=== PATIENT | female | born 1955 | race Caucasian/White ===

== ENCOUNTER 2023-10-22 13:27 | Outpatient (CLI) | payer OTHER, SELFPAY | END 2023-10-22 13:28 | disposition home or self-care (01) | LOC: ANHLAB 13:36 | PROVIDERS: Visit Provider Urology | DX: N30.10 Interstitial cystitis (chronic) without hematuria (principal) | CPT/HCPCS: 87086 ==

== ENCOUNTER 2023-11-07 03:24 | Day surgery (SDC) | payer OTHER, SELFPAY ==
[2023-10-31 12:12] VITALS: BMI 45.3
--- NOTE | 2023-10-31 12:26 | PC.NURSE ---
Report to the Outpatient Waiting Room, entrance under the green pavilion located off [facility], at time _0915_ on date _[id number]_. Planned Procedure Time: _1115_.? Time changes happen often and if your time is changed the preop area will call you the afternoon before. - You and your visitor will be asked to self-screen and do not enter if you have any COVID symptoms. Please call surgeon if you need to reschedule. - A mask is optional within the hospital at this time. Patients may have clear liquids (water, carbonated beverages, clear teas, apple juice) until 3 hours prior to surgery with a maximum of 20 ounces. - No food from midnight until time of surgery and no smoking Take only the following medications with a SIP of water on the morning of surgery: __Levothyroxine, Metoprolol, Imdur and Ranolazine____ DO NOT STOP ANY OF YOUR OTHER PRESCRIPTION MEDICATIONS PRIOR TO SURGERY EXCEPT THE FOLLOWING Medications to discontinue per physician ____All vitamins and supplements___ Date to take last ctyp____[id number] Please no make-up, nail sinhala, hairspray, perfume, deodorant, or body powder the day of surgery.? No jewelry (including any body piercings) or valuables the day of surgery, leave them at home.? Please take a shower or bath the night before, or the morning of, surgery with an antibacterial soap.? Wear comfortable, loose fitting clothing.? - Jewelry must be removed prior to entering the operating room.? Rings and piercings that are not removed may be cut off. - The hospital will not accept responsibility for valuables.? - Please leave all valuables, including medications, at home the day of surgery. If you are going home after surgery, a licensed tank wagon driver must drive you home.? - NO public transportation without another adult if you receive anesthesia. - We recommend that an adult stay with you for 24 hours following discharge. - We also recommend that you do not drive, make important decision, drink alcoholic beverages, or take any drugs that were not prescribed by your health care provider for at least 24 hours after your discharge time. Follow any additional instructions given to you from your surgeon. Telephone instructions given to ___Renee___and asked if any additional questions and then verbalized understanding. Patient advised to call surgeon office or pre surgery nurse liaison [phone] if any additional questions.
--- NOTE | 2023-11-02 17:18 | PM.IMHP ---
H&P: HPI History of Present Illness Date/Time: 11/02/23 17:18 Chief Complaint: bladder pain Narrative: recurrence of Hunner's ulcer Review of Systems Review of Systems: All systems reviewed & are unremarkable except as noted in HPI and below PMFSH Social History Social History Smoking status: Never smoker Alcohol intake: current Drinks per week: 7 Living arrangements: with family Spiritual care concerns: No Meds Home Medications and Allergies Home Medications Medication Instructions Recorded Confirmed Type adalimumab 40 mg/0.8 mL 40 mg subcut ONCE 10/31/23 10/31/23 History subcutaneous syringe kit (Humira) atorvastatin 40 mg tablet 40 mg PO HS 10/31/23 10/31/23 History cholecalciferol (vitamin D3) 125 125 mcg PO Q48H 10/31/23 10/31/23 History mcg (5,000 unit) tablet (Vitamin D3) cyclosporine 0.05 % eye drops in a 2 drp EACH EYE DAILY 10/31/23 10/31/23 History dropperette (Restasis) estradiol 0.05 mg/24 hr semiweekly 0.05 mg topical ONCE 10/31/23 10/31/23 History transdermal patch (Suzi) folic acid 1 mg tablet 1 mg PO DAILY 10/31/23 10/31/23 History isosorbide mononitrate 30 mg 90 mg PO DAILY 10/31/23 10/31/23 History tablet,extended release 24 hr levothyroxine 125 mcg tablet 125 mcg PO DAILY 10/31/23 10/31/23 History magnesium oxide 400 mg PO HS 10/31/23 10/31/23 History metformin 500 mg tablet 500 mg PO BID 10/31/23 10/31/23 History methotrexate sodium 2.5 mg tablet 15 mg PO WEEKLY 10/31/23 10/31/23 History metoprolol succinate 200 mg 200 mg PO BID 10/31/23 10/31/23 History tablet,extended release 24 hr naproxen 500 mg tablet 500 mg PO BID 10/31/23 10/31/23 History omega 8-ume-xxf-fish oil 1,000 mg 1 cap PO BID 10/31/23 10/31/23 History (120 mg-180 mg) capsule (Fish Oil) omeprazole 20 mg capsule,delayed 20 mg PO BID 10/31/23 10/31/23 History release ranolazine 500 mg tablet,extended 500 mg PO BID 10/31/23 10/31/23 History release,12 hr sertraline 50 mg tablet 50 mg PO HS 10/31/23 10/31/23 History tramadol 50 mg tablet 50 mg PO BID 10/31/23 10/31/23 History vit A 7,160 unit-vit C 113 mg-vit 1 tablet PO HS 10/31/23 10/31/23 History E 100 [id number]-[id number] tablet vitamin B complex 1 tablet PO DAILY 10/31/23 10/31/23 History Allergies Allergy/AdvReac Type Severity Reaction Status Date / Time adhesive tape Allergy Intermediate Rash Verified 10/31/23 11:55 Penicillins Allergy Intermediate Rash Verified 10/31/23 11:55 Sulfa (Sulfonamide Allergy Intermediate Rash Verified 10/31/23 11:55 Antibiotics) Exam Narrative: no acute distress normal breathing alert oriented x3 Assessment and Plan Assessment and plan (1) 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
--- NOTE | 2023-11-07 04:38 | WPDHPUPDATE1 ---
History and Physical Update Update Date/Time: 11/07/23 04:38 History and Physical has been reviewed, including an updated exam of the patient. There are NO changes in the patient's condition. Risks, benefits, and alternatives have been discussed and questions answered. Patient agrees to proceed with procedure.
[2023-11-07 09:30] VITALS: BP 149/64; PULSE 63; RESP 18; TEMP 36.2; O2SAT 90; BMI 44.9
[2023-11-07] MEDS: LACTATED RINGERS 1,000 ML 30 ML IV CONT (09:30)
--- NOTE | 2023-11-07 11:55 | WPDANESEPPF ---
Anes - Initial Pre Proc Eval Procedure: Operation Date: 11/07/23 11:15 Proposed Procedures p Cystoscopy, Bladder Biopsy with Steroid Injection - Fausto Holland MD Date/Time: 11/07/23 11:55 Surgeon: Fausto Holland MD Pre Op Diagnosis: hunners ulcer Patient Data Age: 68 Gender: F Height: 1.55 m Weight: 109 kg Allergies Allergy/AdvReac Type Severity Reaction Status Date / Time adhesive tape Allergy Intermediate Rash Verified 10/31/23 11:55 Penicillins Allergy Intermediate Rash Verified 10/31/23 11:55 Sulfa (Sulfonamide Allergy Intermediate Rash Verified 10/31/23 11:55 Antibiotics) Home Medications Medication Instructions Recorded Confirmed Type adalimumab 40 mg/0.8 mL 40 mg subcut ONCE 10/31/23 10/31/23 History subcutaneous syringe kit (Humira) atorvastatin 40 mg tablet 40 mg PO HS 10/31/23 10/31/23 History cholecalciferol (vitamin D3) 125 125 mcg PO Q48H 10/31/23 10/31/23 History mcg (5,000 unit) tablet (Vitamin D3) cyclosporine 0.05 % eye drops in a 2 drp EACH EYE DAILY 10/31/23 10/31/23 History dropperette (Restasis) estradiol 0.05 mg/24 hr semiweekly 0.05 mg topical ONCE 10/31/23 10/31/23 History transdermal patch (Suzi) folic acid 1 mg tablet 1 mg PO DAILY 10/31/23 10/31/23 History isosorbide mononitrate 30 mg 90 mg PO DAILY 10/31/23 10/31/23 History tablet,extended release 24 hr levothyroxine 125 mcg tablet 125 mcg PO DAILY 10/31/23 10/31/23 History magnesium oxide 400 mg PO HS 10/31/23 10/31/23 History metformin 500 mg tablet 500 mg PO BID 10/31/23 10/31/23 History methotrexate sodium 2.5 mg tablet 15 mg PO WEEKLY 10/31/23 10/31/23 History metoprolol succinate 200 mg 200 mg PO BID 10/31/23 10/31/23 History tablet,extended release 24 hr naproxen 500 mg tablet 500 mg PO BID 10/31/23 10/31/23 History omega 6-abn-ixx-fish oil 1,000 mg 1 cap PO BID 10/31/23 10/31/23 History (120 mg-180 mg) capsule (Fish Oil) omeprazole 20 mg capsule,delayed 20 mg PO BID 10/31/23 10/31/23 History release ranolazine 500 mg tablet,extended 500 mg PO BID 10/31/23 10/31/23 History release,12 hr sertraline 50 mg tablet 50 mg PO HS 10/31/23 10/31/23 History tramadol 50 mg tablet 50 mg PO BID 10/31/23 10/31/23 History vit A 7,160 unit-vit C 113 mg-vit 1 tablet PO HS 10/31/23 10/31/23 History E 100 eeep-sphb-blamsr tablet vitamin B complex 1 tablet PO DAILY 10/31/23 10/31/23 History tramadol 50 mg tablet 50 mg PO Q6H PRN pain #10 tabs 11/07/23 Rx Patient hx anesthesia problems: post op nausea/vomiting Family hx anesthesia problems: none Results Review: All pre-operative results and documents have been reviewed as part of the pre-operative evaluation. [facility] Social History Social History Smoking status: Never smoker Alcohol intake: current Drinks per week: 7 Living arrangements: with family Spiritual care concerns: No Anes - Eval Final PreProcedure Day of Procedure 11/07/23 11:55 Patient weight: morbidly obese Heart: regular rate and rhythm Lungs: clear to auscultation Airway: Mallampati scale class II Neurological: alert and oriented Last oral intake: >/= 8 hours ASA classification: III Emergent: no Anesthetic plan: proceed Anesthesia type and monitoring: general GIVS and standard monitoring Results Review: All pre-operative results and documents have been reviewed as part of the pre-operative evaluation. HTN, hyperlipidemia, hypothyroidism, borderline DM. Informed Consent: The patient's anesthetic plan and its attendant risks and benefits were discussed with the patient/family/POA. Questions were solicited and answers provided to the satisfaction of the patient/family/POA.
[2023-11-07] MEDS: LIDOCAINE HCL 2% GEL UROJET 10 ML PKG MUCOUS MEM (12:00)
[2023-11-07] MEDS: ceFAZolin 2 GM/D5W 50 ML 2 GM/50 ML BAG IVPB (12:07)
[2023-11-07] MEDS: TRIAMCINOLONE ACET INJ 40 MG/ML VIAL 200 MG XX (12:18)
--- NOTE | 2023-11-07 12:21 | W.PM.PROC2 ---
Procedure Note - Detailed Date of Procedure 11/07/23 Pre-op Diagnosis hunners ulcer Post-op Diagnosis Same Procedure Performed Cystoscopy, bladder biopsy, injection of steroids Surgeon Fausto Holland MD Anesthesia MAC and Local (Uro jet) Indications History of Hunner's ulcerations. Here today for repeat injection. Understands risks of bleeding, infection, damage to the urinary tract, lack of efficacy, need for repeat procedures. She agrees to proceed Findings Hunner's ulcer left lateral wall and posterior bladder Description of Procedure She was correctly identified. Informed consent obtained. From the operating room. She was given monitored anesthesia care. She was placed in dorsal lithotomy position. She was prepped and draped sterile fashion. Time-out performed. She was given appropriate perioperative antibiotics. On cystoscopy there was an area of Hunner's ulceration on the posterior wall and the left lateral wall. One of these areas was biopsied. Biopsy was done away from the orifice. I then injected steroids. 5 cc total. Kenalog 40 milligrams/mL. I did this into the ulcerated areas. I then fulgurated the lesions. All fulguration was done away from the ureteral orifices. The rest of the bladder showed no tumors or other abnormalities. Her bladder was examined under low insufflation pressures. No active bleeding. She was awakened transferred to PACU in stable condition. Estimated Blood Loss 1 Packing No Pathology Yes (Bladder biopsy) Complications No immediate complications Condition Stable Disposition PACU
[2023-11-07 12:25] VITALS: BP 155/69; PULSE 64; RESP 16
[2023-11-07 13:00] VITALS: BP 133/55; PULSE 62; RESP 16
[2023-11-07] MEDS: oxyCODONE HCL (*CRX) 5 MG TAB IR PO (13:22)
== END 2023-11-07 13:45 | disposition home or self-care (01) ==
PROVIDERS: PCP Family Medicine; Visit Provider Urology
PROC: 0TBB8ZX Excision of Bladder, Via Natural or Artificial Opening Endoscopic, Diagnostic (ICD-10-PCS; CPT 52204; principal; 2023-11-07 11:15)
DX: N30.10 Interstitial cystitis (chronic) without hematuria (principal)
CPT/HCPCS: 52283; 52204; 88305; A9270; J0690; J2405; J2704; J3010; J3301; J7120